=== PATIENT | female | born 2000 ===

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

== ENCOUNTER 2024-07-19 14:39 | Outpatient (REF) | payer BC, SELFPAY | END 2024-07-19 14:40 | disposition home or self-care (01) | LOC: NCHCN 14:39 | PROVIDERS: PCP Nurse Practitioner Family; Visit Provider Family Medicine | DX: N39.0 Urinary tract infection, site not specified (principal); R82.89 Other abnormal findings on cytological and histological examination of urine | CPT/HCPCS: 87086 ==